=== PATIENT | male | born 1960 | race Caucasian/White ===

== ENCOUNTER 2019-09-22 18:56 | Emergency (ER) | payer BC, OTHER ==
[2019-09-22] MEDS ORDERED: IV RINGERS SOLUTION,LACTATED 1,000 ML IV SCH ×2 (19:06→22:00)
--- NOTE | 2019-09-22 19:06 | PHYS DOC ---
Past History Past Medical History: Anxiety, Arthritis, COPD, Dementia, Other Adult General Chief Complaint Chief Complaint: ALTERED MENTAL STATUS " .. He not right... he all confused... he is forgetting stuff... " .. " He is no right in the head..." ( Mother) [facility] Patient is a 59 year old male who presents with above hx and complaints of mental status change. She always appears to be somewhat confused and a poor historian. Patient does remark that he has had marked increase of memory problems forgetting where his phone is, the keys to the house, or what he is doing next. His mother is at his bedside and advised his mental status is markedly deteriorated in the past 24 hours. but has been going downhill for some time( Months), The patient normally follows Dr. Holdre. Patient denies any changes in meds. Patient denies any illicit drug use. Patient denies any recent head injuries or falls. Patient does have obvious memory problems and at times seems very confused. His mother on the other hand is quite oriented in spite of being 20 +years his senior. Patient does live by himself. Mother brought him in tonight because of his marked confusion. Review of Systems Review of Systems Patient poor historian but denies any pain Constitutional: Denies fever or chills [] Eyes: Denies change in visual acuity, redness, or eye pain [] HENT: Denies nasal congestion or sore throat [] Respiratory: Denies cough or shortness of breath [] Cardiovascular: No additional information not addressed in [facility] [] GI: Denies abdominal pain, nausea, vomiting, bloody stools or diarrhea [] : Denies dysuria or hematuria [] Musculoskeletal: Denies back pain or joint pain [] Integument: Denies rash or skin lesions [] Neurologic: Denies headache, focal weakness or sensory changes [] Endocrine: Denies polyuria or polydipsia [] All other systems were reviewed and found to be within normal limits, except as documented in this note. Family History Family History Noncontributory Current Medications Current Medications See nursing for home meds Allergies Allergies No known drug allergies Physical Exam Physical Exam Constitutional: no acute distress, non-toxic appearance. Obviously having confusion and memory problems HENT: Normocephalic, atraumatic, bilateral external ears normal, oropharynx moist, no oral exudates, nose normal. [] Eyes: PERRLA, EOMI, conjunctiva normal, no discharge. [] Neck: Normal range of motion, no tenderness, supple, no stridor. [] Cardiovascular: Regular Heart rate regular rhythm, no murmur []PMI slightly to the left Lungs & Thorax: Bilateral breath sounds U apexes few scattered wheezes on auscultation [] Abdomen: Bowel sounds normal, soft, no tenderness, no masses, no pulsatile masses. [] Skin: Warm, dry, no erythema, no rash. Poor turgor Back: No tenderness, no CVA tenderness. [] Extremities: No tenderness, no cyanosis, no clubbing, ROM intact, no edema. [] Arthritic changes. Has wide shuffling gait. Neurologic: Alert and oriented X 3, moves extremities on request. Has distal sensory, no focal deficits noted. []DTRs are +2 patella and brachial. Psychologic: Affect anxious, judgement obviously impaired, mood at times angry demeanor.] EKG EKG I interpretation EKG shows a sinus rhythm at 64 bpm. Does have mild leftward axis changes in nonspecific T-wave changes inferiorly leads. No findings acute STEMI with contralateral changes.[] Radiology/Procedures Radiology/[place] [address] IMAGING REPORT Signed PATIENT: GUDELIA ORTIZ ACCOUNT: [id number] : 1960 LOCATION: [address] [place] [address] AGE: 59 SEX: M EXAM STATUS: ADM IN ORD. PHYSICIAN: CHINA JONES MD REASON: mental status change PROCEDURE: PORTABLE CHEST 1V PORTABLE CHEST 1V Clinical History: Technique: AP view of the chest was obtained at 09/22/2019 7:06 PM. Comparison: None. Findings: The cardiomediastinal silhouette is normal. The pulmonary vasculature is normal. There are linear opacities in the lung bases. Impression: Mild basal infiltrates likely discoid atelectasis. Electronically signed by: Shavon Almeida III, MD (09/22/2019 11:55 PM) [facility] DICTATED AND SIGNED BY: SHAVON ALMEIDA III, MD DATE: 09/22/19 [id number] CC: ULISES OLIVARES MD; CHINA JONES MD ~ [][place] [id number] IMAGING REPORT Signed PATIENT: GUDELIA ORTIZ ACCOUNT: [id number] : 1960 LOCATION: ER AGE: 59 SEX: M EXAM STATUS: REG ER ORD. PHYSICIAN: CHINA JONES MD REASON: mental change PROCEDURE: CT HEAD AND CERVICAL SPINE WO CT Head W/O Contrast: History: Comparison: none Axial images were obtained without contrast. There is mild diffuse atrophy. There is no mass effect, extraaxial fluid collections or hydrocephalus. There is no focal loss of mujica-white matter distinction to suggest acute ischemia, i.e. stroke. Impression: No acute findings. End impression CT C-Spine without contrast: Clinical History: Technique: Axial helical images of the cervical spine were obtained without contrast, axial coronal and sagittal reconstruction was performed. Findings: There is no loss of vertebral body stature. There is no prevertebral soft tissue swelling. The vertebral bodies are well aligned. The C1-C2 relationship is normal. The visualized osseous structures appear normal. Evaluation of the central canal is limited without contrast. There is multiple posterior disc bulges resulting in flattening of the thecal sac. There does not appear to be gross flattening of the cervical cord. There is marked narrowing of multiple neuroforamen. Impression: No acute findings. Clinical correlation suggested. PQRS Compliance Statement: One or more of the following individualized dose reduction techniques were utilized for this examination: 1. Automated exposure control 2. Adjustment of the mA and/or kV according to patient size 3. Use of iterative reconstruction technique Electronically signed by: Shavon Almeida III, MD (09/22/2019 8:22 PM) [facility] DICTATED AND SIGNED BY: SHAVON ALMEIDA III, MD DATE: 09/22/192021 CC: ULISES OLIVARES MD; CHINA JONES MD ~ Course & Med Decision Making Course & Med Decision Making Pertinent Labs and Imaging studies reviewed. (See chart for details) Pt. admitted to Dr. Olivares for further eval and tx. Neuro consult with Neurology. Impression: 1. Mental Status Change 2. Dementia 3. Elevated Mag 2.7 4. Elevated Sed. 39 5. Mild Elevation D-dimer 0.58 6. Marked cerebral atrophy vs hydrocephalus or both 7. Hx COPD/Bronchitis []Note after pt. was admitted. He became very agitated. Called his mother and left AMA. Pt. left in care of his mother. Dragon Disclaimer Dragon Disclaimer This electronic medical record was generated, in whole or in part, using a voice recognition dictation system. Departure Departure: Disposition: 01 HOME/RESIDENCE PRIOR TO ADM Condition: STABLE Dragon Disclaimer This chart was dictated in whole or in part using Voice Recognition software in a busy, high-work load, and often noisy Emergency Department environment. It may contain unintended and wholly unrecognized errors or omissions. Dragon Disclaimer This chart was dictated in whole or in part using Voice Recognition software in a busy, high-work load, and often noisy Emergency Department environment. It may contain unintended and wholly unrecognized errors or omissions. CHINA JONES MD Sep 22, 2019 19:06
[2019-09-22 20:10] LABS: BASO % 1 % (0-3); EOS # 0.1 x10^3/uL (0.0-0.7); EOS % 2 % (0-3); HEMATOCRIT 46.6 % (39.0-53.0); HEMOGLOBIN 16.5 g/dL (13.0-17.5); LYMPH # 1.1 x10^3/uL (1.0-4.8); LYMPH % 29 % (24-48); MEAN CORPUSCULAR HEMOGLOBIN 33 pg (25-35); MEAN CORPUSCULAR HGB CONC 35 g/dL (31-37); MEAN CORPUSCULAR VOLUME 94 fL (79-100); MONO # 0.4 x10^3/uL (0.0-1.1); MONO % 9 % (0-9); NEUT # 2.2 x10^3uL (1.8-7.7); NEUT % 59 % (31-73); PLATELET COUNT 146 x10^3/uL (140-400); RED BLOOD COUNT 4.95 x10^6/uL (4.30-5.70); RED CELL DISTRIBUTION WIDTH 13.1 % (11.5-14.5); WHITE BLOOD COUNT 3.8 x10^3/uL (4.0-11.0)
[2019-09-22 20:17] LABS: CALCIUM 8.6 mg/dL (8.5-10.1); CREATININE 0.8 mg/dL (0.7-1.3); GFR 98.3
--- NOTE | 2019-09-22 20:25 | RAD ---
CT Head W/O Contrast: History: Comparison: none Axial images were obtained without contrast. There is mild diffuse atrophy. There is no mass effect, extraaxial fluid collections or hydrocephalus. There is no focal loss of mujica-white matter distinction to suggest acute ischemia, i.e. stroke. Impression: No acute findings. End impression CT C-Spine without contrast: Clinical History: Technique: Axial helical images of the cervical spine were obtained without contrast, axial coronal and sagittal reconstruction was performed. Findings: There is no loss of vertebral body stature. There is no prevertebral soft tissue swelling. The vertebral bodies are well aligned. The C1-C2 relationship is normal. The visualized osseous structures appear normal. Evaluation of the central canal is limited without contrast. There is multiple posterior disc bulges resulting in flattening of the thecal sac. There does not appear to be gross flattening of the cervical cord. There is marked narrowing of multiple neuroforamen. Impression: No acute findings. Clinical correlation suggested. PQRS Compliance Statement: One or more of the following individualized dose reduction techniques were utilized for this examination: 1. Automated exposure control 2. Adjustment of the mA and/or kV according to patient size 3. Use of iterative reconstruction technique Electronically signed by: Uziel Couch III, MD (09/22/2019 8:22 PM) [facility]
[2019-09-22 20:35] LABS: ALBUMIN 3.4 g/dL (3.4-5.0); DIRECT BILIRUBIN 0.1 mg/dL (0.0-0.2); MAGNESIUM 2.7 mg/dL (1.8-2.4); TOTAL BILIRUBIN 0.6 mg/dL (0.2-1.0); TOTAL PROTEIN 7.2 g/dL (6.4-8.2)
[2019-09-22 21:19] LABS: SEDIMENTATION RATE 39 (0-15)
[2019-09-22] MEDS ORDERED: IV RINGERS SOLUTION,LACTATED 1,000 ML IV ONE (21:45)
[2019-09-22] MEDS ORDERED: ACETAMINOPHEN 325 MG TABLET PO PRN (22:00)
[2019-09-22] MEDS ORDERED: ONDANSETRON PF 4 MG/2 ML VIAL. IV PRN (22:00)
[2019-09-22] MEDS ORDERED: ANTI-COAG MONITOR BY PHARMACY. MC PRN (22:15)
[2019-09-22 22:26] LABS: BARBITURATES NEG (NEG); BENZODIAZEPINES POS (NEG); CANNABINOIDS NEG (NEG); COCAINE NEG (NEG); METHADONE NEG (NEG); OPIATES POS (NEG); PHENCYCLIDINE NEG (NEG)
[2019-09-22 22:29] LABS: AMPHETAMINE/METHAMPHETAMINE NEG (NEG)
[2019-09-22] MEDS ORDERED: IPRATRPIUM/ALBUTEROL 0.5/2.5MG 3 ML NEBU. NEB ONE (22:30)
[2019-09-22] MEDS ORDERED: ENOXAPARIN ** NOTE DOSE ** SYRINGE SQ SCH (22:30)
[2019-09-22 22:39] LABS: BILIRUBIN,URINE NEG (NEG); CLARITY,URINE CLEAR; COLOR,URINE YELLOW; GLUCOSE,URINE NEG (NEG)
[2019-09-22 22:40] LABS: BACTERIA,URINE 0 /HPF (0-FEW); NITRITE,URINE NEG (NEG); SQUAMOUS EPITHELIAL CELL,UR OCC /LPF; UROBILINOGEN,URINE 0.2 mg/dL (0.2 mg/dL)
[2019-09-22 22:41] VITALS: BP 103/70
--- NOTE | 2019-09-22 23:59 | RAD ---
PORTABLE CHEST 1V Clinical History: Technique: AP view of the chest was obtained at 09/22/2019 7:06 PM. Comparison: None. Findings: The cardiomediastinal silhouette is normal. The pulmonary vasculature is normal. There are linear opacities in the lung bases. Impression: Mild basal infiltrates likely discoid atelectasis. Electronically signed by: Uziel Couch III, MD (09/22/2019 11:55 PM) [facility]
[2019-09-23] MEDS ORDERED: LORazepam 1 MG TABLET PO ONE
--- NOTE | 2019-09-23 01:00 | NUR ---
pt signed out AMA from the ER, he did not make it to the unit to be admitted. Pt discharged from the system.
--- NOTE | 2019-09-23 05:49 | EKG ---
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
[2019-09-23] MEDS ORDERED: IPRATRPIUM/ALBUTEROL 0.5/2.5MG 3 ML NEBU. NEB SCH (08:00)
== END 2019-09-23 00:18 | disposition left against medical advice (07) ==
LOC: ER 18:56 → UNDOADMIN 21:00 → 1 SOUTH 21:00 → UNDODISIN 09-23 00:18
DX: F03.90 Unspecified dementia, unspecified severity, without behavioral disturbance, psychotic disturbance, mood disturbance, and anxiety (principal); R41.82 Altered mental status, unspecified; R70.0 Elevated erythrocyte sedimentation rate; R79.1 Abnormal coagulation profile; J44.9 Chronic obstructive pulmonary disease, unspecified; F41.9 Anxiety disorder, unspecified; M19.90 Unspecified osteoarthritis, unspecified site
CPT/HCPCS: 36415; 70450; 71045; 72125; 80048; 80076; 80307; 81001; 82550; 83605; 83690; 83735; 83880; 84443; 84484; 85025; 85379; 85610; 85651; 85730; 87040; 93005; 96360; 96361; 99285; J7120

== ENCOUNTER 2020-08-29 09:24 | Emergency (ER) | payer BC, OTHER ==
[~2020-08-29] VITALS: Ht 182.9 cm; Wt 80.0 kg
--- NOTE | 2020-08-29 09:49 | PHYS DOC ---
Past History Past Medical History: Anxiety, Arthritis, COPD, Dementia, Other Past Surgical History: No Surgical History Alcohol Use: Occasionally Drug Use: None General Adult EDM: Chief Complaint: dizziness HPI: HPI: Patient is a male who presents with 1 week history of dizziness. Patient describes lightheaded dizziness is worse with activity. Patient is also had diarrhea which consist of couple loose stools per day over the last week. Patient has had a mild runny nose and mild sore throat. Patient denies any fever, chills, cough or shortness of breath. Patient denies any pain. Patient has had mild nausea but no vomiting. Review of Systems: Review of Systems: Constitutional: Denies fever or chills Eyes: Denies change in visual acuity HENT: Patient's had mild rhinorrhea and a mild sore throat Respiratory: Denies cough or shortness of breath Cardiovascular: Denies chest pain or edema GI: Denies abdominal pain vomiting or blood in his stool has had mild diarrhea and mild nausea : Denies dysuria Musculoskeletal: Denies back pain or joint pain Integument: Denies rash Neurologic: Denies headache, focal weakness or sensory changes patient has had lightheaded dizziness Endocrine: Denies polyuria or polydipsia Lymphatic: Denies swollen glands Psychiatric: Denies depression or anxiety Current Medications: Current Meds: Current Medications Sodium Chloride 1,000 ml @ 1,000 mls/hr 1X ONCE IV Last administered on 08/29/20at 09:45; Start 08/29/20 at 10:00; Stop 08/29/20 at 10:59; Status DC Ondansetron HCl (Zofran) 4 mg 1X ONCE IVP Last administered on 08/29/20at 10:11; Start 08/29/20 at 10:00; Stop 08/29/20 at 10:01; Status DC Allergies: Allergies: Allergies Coded Allergies Type Severity Reaction Last Updated Verified No Known Drug Allergies 09/22/19 No Physical Exam: PE: Constitutional: Well developed, well nourished, no acute distress, non-toxic appearance. [] HENT: Normocephalic, atraumatic, bilateral external ears normal, no trismus, nose normal. [] Eyes: PERRLA, EOMI, conjunctiva normal, no discharge. [] Neck: Normal range of motion, no tenderness, supple, no stridor. [] Cardiovascular:Heart rate regular rhythm, peripheral pulses are intact, cap refills less than 2 seconds Lungs & Thorax: Bilateral breath sounds clear, no respiratory distress Abdomen: , soft, no tenderness, no masses, no pulsatile masses. [] Skin: Warm, dry, no erythema, no rash. [] Back: No tenderness, no CVA tenderness. [] Extremities: No tenderness, no cyanosis, no clubbing, ROM intact, no edema. [] Neurologic: Alert and oriented X 3, normal motor function, normal sensory function, no focal deficits noted. [] Cerebellar exam normal Psychologic: Affect normal, judgement normal, mood normal. [] Current Patient Data: Labs: Laboratory Tests Test 08/29/20 09:45 08/29/20 10:22 White Blood Count 7.1 x10^3/uL Red Blood Count 5.33 x10^6/uL Hemoglobin 17.8 g/dL Hematocrit 52.3 % Mean Corpuscular Volume 98 fL Mean Corpuscular Hemoglobin 34 pg Mean Corpuscular Hemoglobin Concent 34 g/dL Red Cell Distribution Width 13.9 % Platelet Count 303 x10^3/uL Neutrophils (%) (Auto) 68 % Lymphocytes (%) (Auto) 20 % Monocytes (%) (Auto) 11 % Eosinophils (%) (Auto) 1 % Basophils (%) (Auto) 0 % Neutrophils # (Auto) 4.8 x10^3uL Lymphocytes # (Auto) 1.4 x10^3/uL Monocytes # (Auto) 0.7 x10^3/uL Eosinophils # (Auto) 0.1 x10^3/uL Basophils # (Auto) 0.0 x10^3/uL Sodium Level 137 mmol/L Potassium Level 3.5 mmol/L Chloride Level 101 mmol/L Carbon Dioxide Level 24 mmol/L Anion Gap 12 Blood Urea Nitrogen 15 mg/dL Creatinine 0.9 mg/dL Estimated GFR (Cockcroft-Gault) 85.5 BUN/Creatinine Ratio 17 Glucose Level 100 mg/dL Calcium Level 10.3 mg/dL Total Bilirubin 1.1 mg/dL Aspartate Amino Transf (AST/SGOT) 20 U/L Alanine Aminotransferase (ALT/SGPT) 25 U/L Alkaline Phosphatase 143 U/L Troponin I Quantitative < 0.017 ng/mL Total Protein 8.6 g/dL Albumin 4.0 g/dL Albumin/Globulin Ratio 0.9 Lipase 187 U/L Urine Collection Type Unknown Urine Color Kaylynn Urine Clarity Hazy Urine pH 5.5 Urine Specific Brewer 1.025 Urine Protein Neg Urine Glucose (UA) Neg mg/dL Urine Ketones (Stick) 80 mg/dL Urine Blood Neg Urine Nitrite Neg Urine Bilirubin Neg Urine Urobilinogen Dipstick 0.2 mg/dL Urine Leukocyte Esterase Neg Urine RBC Occ /HPF Urine WBC 1-4 /HPF Urine Squamous Epithelial Cells Occ /LPF Urine Bacteria Few /HPF Urine Hyaline Casts Occ /HPF Urine Granular Casts Occ /HPF Urine Mucus Mod /LPF Current Medications Medications (Trade) Dose Ordered Sig/Melony Route PRN Reason Start Time Stop Time Status Last Admin Dose Admin Sodium Chloride 1,000 ml @ 1,000 mls/hr 1X ONCE IV 08/29/20 10:00 08/29/20 10:59 DC 08/29/20 09:45 Ondansetron HCl (Zofran) 4 mg 1X ONCE IVP 08/29/20 10:00 08/29/20 10:01 DC 08/29/20 10:11 Vital Signs: Vital Signs Date Time Temp Pulse Resp B/P (MAP) Pulse Ox O2 Delivery O2 Flow Rate FiO2 08/29/20 11:32 65 18 125/78 (94) 97 Room Air 08/29/20 09:52 97.6 EKG: EKG: EKG interpreted by me normal sinus rhythm with a rate of 67 left anterior hemiblock, left axis deviation, nonspecific ST changes [] Radiology/Procedures: Radiology/Procedures: [][address] [address] IMAGING REPORT Signed PATIENT: GUDELIA ORTIZ ACCOUNT: [id number] : 1960 LOCATION: ER AGE: 60 SEX: M EXAM STATUS: REG ER ORD. PHYSICIAN: CHRISTINE GE MD REASON: dizzy PROCEDURE: PORTABLE CHEST 1V INDICATION: Reason: dizzy / Spl. Instructions: / History: COMPARISON: September 22, 2019 FINDINGS: Single view of chest obtained. No focal airspace consolidation. Cardiomediastinal contour unremarkable. No acute osseous abnormality. IMPRESSION: * No focal airspace consolidation or edema. Electronically signed by: Leoncio Wright MD (08/29/2020 10:20 AM) [id number] DICTATED AND SIGNED BY: LEONCIO WRIGHT MD DATE: 08/29/20 1020 CC: CHRISTINE GE MD; ULISES OLIVARES MD ~MTH0 [address] [place] [address] IMAGING REPORT Signed PATIENT: GUDELIA ORTIZ ACCOUNT: [id number] : 1960 LOCATION: ER AGE: 60 SEX: M EXAM STATUS: REG ER ORD. PHYSICIAN: CHRISTINE GE MD REASON: dizzy PROCEDURE: CT HEAD WO CONTRAST CT Head W/O Contrast: History: Reason: dizzy / Spl. Instructions: / History: Comparison: September 22, 2019 Axial images were obtained without contrast. The mujica and white matter appears normal and symmetrical for the patients age. There is no mass effect, extraaxial fluid collections or hydrocephalus. There is no gross bleed. There is no focal loss of mujica-white matter distinction to suggest acute ischemia, i.e. stroke. Impression: No acute findings. PQRS Compliance Statement: One or more of the following individualized dose reduction techniques were utilized for this examination: 1. Automated exposure control 2. Adjustment of the mA and/or kV according to patient size 3. Use of iterative reconstruction technique Electronically signed by: Shavon Almeida III, MD (08/29/2020 10:20 AM) [id number] DICTATED AND SIGNED BY: SHAVON ALMEIDA III, MD DATE: 08/29/20 1020 CC: CHRISTINE GE MD; ULISES OLIVARES MD ~MTH0 0 Heart Score: Risk Factors: Risk Factors: DM, Current or recent (<one month) smoker, HTN, HLP, family history of CAD, obesity. Risk Scores: Score 0 - 3: 2.5% MACE over next 6 weeks - Discharge Home Score 4 - 6: 20.3% MACE over next 6 weeks - Admit for Clinical Observation Score 7 - 10: 72.7% MACE over next 6 weeks - Early Invasive Strategies Course & Med Decision Making: Course & Med Decision Making Pertinent Labs and Imaging studies reviewed. (See chart for details) [] 60-year-old male presents with a chief complaint of dizziness. Patient's work-up is reassuring other than a minor urinary tract infection. Patient will be treated for UTI. Patient had dizziness and need to be rule out coronary and neurological pathologies therefore EKG, head CT were done. Patient also has some possible Covid symptoms and has been swab for this will need to isolate till results come back. Patient is neurologically at his baseline. Doubt acute stroke. CT without any acute pathology. Patient clinically improved and stable on reassessment. Dragon Disclaimer: Howard Disclaimer: This electronic medical record was generated, in whole or in part, using a voice recognition dictation system. Departure Departure: Impression: Primary Impression: Dizziness Additional Impressions: UTI (urinary tract infection) Suspected COVID-19 virus infection Disposition: DC HOME SELF CARE/HOMELESS Condition: STABLE Referrals: ULISES OLIVARES MD (PCP) 2-3 days Patient Instructions: Dizziness, Urinary Tract Infection Additional Instructions: You have been tested for or diagnosed with COVID-19. It is an infection caused by a new type of coronavirus. COVID-19 will cause cold-like or mild flu symptoms in most. It can cause more severe symptoms like problems breathing in some. There is no treatment for COVID-19. The body will clear the infection over time. Self-care will help to ease discomfort. Steps to Take: Self-Care Rest as needed. Healthy habits may help you feel better. Steps include: Choose healthy foods including fruits and vegetables. Drink water throughout the day. Get plenty of sleep each night. If you smoke, try to quit. It may ease breathing. Avoid alcohol. Keep Others Healthy The virus can spread to others. Droplets are released every time you sneeze or cough. The droplets can get into the mouth, nose, or eyes of people near you and lead to infection. To lower the chances of spreading COVID-19 to others: Stay at home until your doctor has said it is safe to leave. If you tested positive this will mean staying isolated until both of the following are true: At least 7 days have passed since the start of illness. You are free of fever for at least 72 hours without the use of medicine. During this time: - Avoid public areas, events, or transportation. Do not return to work or school until your doctor has said it is safe to do so. - Call ahead if you need to go to a medical center. Let them know you may have COVID-19. It will help them guide you where to go. They may also ask you to wear a facemask when you come to the office. - If you call for emergency medical services, let them know you may have COVID- 19. While at home: - Try to avoid close contact with others. Stay about 6 feet away. - If possible, spend most of your time in a separate room from others. - Use a face mask if you will be in close contact with others such as sharing a room or vehicle. - Have someone wipe down common surfaces in the home. Use household sole stapler welt every day on areas like doorknobs, counters, or sinks. - Cough or sneeze into a tissue. Throw the tissue away right after use. If a tissue is not available, cough or sneeze into your elbow. - Wash your hands often. Wash them after sneezing or coughing. Use soap and water and wash for at least 20 seconds. Alcohol based hand pin cleaner can be used if soap and water is not available. - Do not prepare food for others. Avoid sharing personal items like forks, spoons, or toothbrushes. - Avoid close contact with pets while you are sick. There is no evidence of the virus passing to pets. This is a safety step until more is known about this virus. Isolation can be frustrating. Social interaction can help. Keep in touch with friends and family through phone and tech options. You can still interact with others in your home, just keep a safe distance of about 6 feet. Follow-up: Your doctors office will check in with you to see if there are any changes in your health. You may be asked to keep track of symptoms to share with them. They will also let you know when you are clear to be in public again. Problems to Look Out For: Contact your doctor if your recovery is not going as you expect. Get emergency care if you have problems such as: - Trouble breathing - Nonstop chest pain or pressure - Changes in awareness, confusion, or problems waking - Lips or face have bluish color - Worsening of symptoms If you think you have an emergency, call for emergency medical services right away. As taken from [facility] EMERGENCY DEPARTMENT GENERAL DISCHARGE INSTRUCTIONS THANK YOU for coming to [facility] Emergency Department (ED) today and trusting us with your care. We trust that you had a positive experience in our Emergency Department. If you wish to speak to the department Management you can contact the emergency department at YOUR FOLLOW UP INSTRUCTIONS ARE FOLLOWS: Do you have a private doctor? If you do not have a private doctor, please ask for a resource list of physicians or clinics that may be able to assist you with follow up c are. The Emergency Physician has interpreted your x-rays. The X-ray specialist will also review them. If there is a change in the findings you will be notified in 48 hours when at all possible. A lab test or lab culture may have been done, your results will be reviewed and you will be notified if you need a change in treatment. ADDITIONAL INSTRUCTIONS AND INFORMATION Your care today has been supervised by a physician who is specially trained in emergency care. Many problems require more than one evaluation for a complete diagnosis and treatment. We recommend that you schedule your follow up appointment as recommended to ensure complete treatment of your illness or injury. If you are unable to obtain follow up care and continue to have a problem, or if your condition worsens we recommend that you return to the ED. We are not able to safely determine your condition over the phone nor are we able to give sound medical advice over the phone. For these safety reasons, if you call for medical advice we will ask you to come to the ED for further evaluation If you have any questions regarding these discharge instructions please call the ED at SAFETY INFORMATION In the interest of safety, wellness, and injury prevention; we encourage you to wear your seatbelt, if you smoke; quit smoking, and we encourage your family to use protective helmet for bicycling and other sporting events that present an increased risk for head injury. IF YOUR SYMPTOMS WORSEN OR NEW SYMPTOMS DEVELOP, OR YOU HAVE CONCERNS ABOUT YOUR CONDITION; OR IF YOUR CONDITION WORSENS WHILE YOU ARE WAITING FOR YOUR FOLLOW UP APPOINTMENT; EITHER CONTACT YOUR PRIMARY CARE DOCTOR, THE PHYSICIAN WHOSE NAME AND NUMBER YOU WERE GIVEN, OR RETURN TO THE ED IMMEDIATELY. Scripts Nitrofurantoin Monohyd/M-Cryst (MACROBID 100 MG CAPSULE) 100 Mg Capsule 1 CAP PO BID for uti for 7 Days, #14 CAP 0 Refills Prov: CHRISTINE GE MD 08/29/20 Meclizine Hcl (MECLIZINE HCL) 25 Mg Tablet 1 TAB PO PRN TID PRN for DIZZINESS, #30 TAB Prov: CHRISTINE GE MD 08/29/20 CHRISTINE GE MD Aug 29, 2020 09:48
[2020-08-29] MEDS ORDERED: IV NORMAL SALINE 1,000ML 1,000 ML IV ONE (10:00)
[2020-08-29] MEDS ORDERED: ONDANSETRON PF 4 MG/2 ML VIAL. IVP ONE (10:00)
--- NOTE | 2020-08-29 10:02 | EKG ---
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
[2020-08-29 10:07] LABS: BASO % 0 % (0-3); EOS # 0.1 x10^3/uL (0.0-0.7); EOS % 1 % (0-3); HEMATOCRIT 52.3 % (39.0-53.0); HEMOGLOBIN 17.8 g/dL (13.0-17.5); LYMPH # 1.4 x10^3/uL (1.0-4.8); LYMPH % 20 % (24-48); MEAN CORPUSCULAR HEMOGLOBIN 34 pg (25-35); MEAN CORPUSCULAR HGB CONC 34 g/dL (31-37); MEAN CORPUSCULAR VOLUME 98 fL (79-100); MONO # 0.7 x10^3/uL (0.0-1.1); MONO % 11 % (0-9); NEUT # 4.8 x10^3uL (1.8-7.7); NEUT % 68 % (31-73); PLATELET COUNT 303 x10^3/uL (140-400); RED BLOOD COUNT 5.33 x10^6/uL (4.30-5.70); RED CELL DISTRIBUTION WIDTH 13.9 % (11.5-14.5); WHITE BLOOD COUNT 7.1 x10^3/uL (4.0-11.0)
[2020-08-29 10:18] LABS: CALCIUM 10.3 mg/dL (8.5-10.1); CREATININE 0.9 mg/dL (0.7-1.3); GFR 85.5; POTASSIUM 3.5 mmol/L (3.5-5.1)
--- NOTE | 2020-08-29 10:22 | RAD ---
CT Head W/O Contrast: History: Reason: dizzy / Spl. Instructions: / History: Comparison: September 22, 2019 Axial images were obtained without contrast. The mujica and white matter appears normal and symmetrical for the patients age. There is no mass effect, extraaxial fluid collections or hydrocephalus. There is no gross bleed. There is no focal loss of mujica-white matter distinction to suggest acute ischemia, i.e. stroke. Impression: No acute findings. PQRS Compliance Statement: One or more of the following individualized dose reduction techniques were utilized for this examination: 1. Automated exposure control 2. Adjustment of the mA and/or kV according to patient size 3. Use of iterative reconstruction technique Electronically signed by: Uziel Couch III, MD (08/29/2020 10:20 AM) [id number]
--- NOTE | 2020-08-29 10:23 | RAD ---
INDICATION: Reason: dizzy / Spl. Instructions: / History: COMPARISON: September 22, 2019 FINDINGS: Single view of chest obtained. No focal airspace consolidation. Cardiomediastinal contour unremarkable. No acute osseous abnormality. IMPRESSION: * No focal airspace consolidation or edema. Electronically signed by: Owen Kimble MD (08/29/2020 10:20 AM) [id number]
[2020-08-29 10:24] LABS: ALBUMIN/GLOBULIN RATIO 0.9 (1.0-1.7); TOTAL BILIRUBIN 1.1 mg/dL (0.2-1.0); TOTAL PROTEIN 8.6 g/dL (6.4-8.2)
[2020-08-29 11:30] LABS: BACTERIA,URINE FEW /HPF (0-FEW); BILIRUBIN,URINE NEG (NEG); CLARITY,URINE HAZY; COLOR,URINE AMBER; GLUCOSE,URINE NEG (NEG); NITRITE,URINE NEG (NEG); RBC,URINE OCC /HPF (0-2); SQUAMOUS EPITHELIAL CELL,UR OCC /LPF; UROBILINOGEN,URINE 0.2 mg/dL (0.2 mg/dL)
[2020-08-29 11:31] LABS: GRANULAR CASTS,URINE OCC /HPF; HYALINE CASTS, URINE OCC /HPF
[2020-08-29 11:32] VITALS: BP 125/78
[2020-08-29] MEDS ORDERED: NITR100C62 PO (11:44)
[2020-08-29] MEDS ORDERED: MECL-75 PO (11:44)
== END 2020-08-29 12:00 | disposition home or self-care (01) ==
LOC: ER 09:24
DX: N39.0 Urinary tract infection, site not specified (principal); R42 Dizziness and giddiness; J44.9 Chronic obstructive pulmonary disease, unspecified; M19.90 Unspecified osteoarthritis, unspecified site; F03.90 Unspecified dementia, unspecified severity, without behavioral disturbance, psychotic disturbance, mood disturbance, and anxiety; Z20.828 Contact with and (suspected) exposure to other viral communicable diseases
CPT/HCPCS: 36415; 70450; 71045; 80053; 81001; 83690; 84484; 85025; 93005; 96361; 96374; 99285; C9803; J2405; J7030; U0003

== ENCOUNTER 2021-03-06 00:28 | Emergency (ER) | payer OTHER ==
[~2021-03-06] VITALS: Ht 182.9 cm; Wt 81.5 kg
[~2021-03-06 00:28] MED LIST: MECL-75 PO; NITR100C62 PO
--- NOTE | 2021-03-06 00:51 | PHYS DOC ---
Past History Past Medical History: Anxiety, Arthritis, COPD, Dementia, Other Past Surgical History: No Surgical History Alcohol Use: Heavy Drug Use: None Adult General HPI HPI Patient is a 61-year-old male with a past medical history significant for anxiety, who took Xanax for years but quit approximately a week ago and also continues approximately 4-5 drinks daily, stating that it usually beer or wine. States that his last drink was in late afternoon. Per patient and patient's mother over the past several months patient has had episodes where he seemed a little confused and slow to answer questions and losing things around the house such as his keys and things. Both mom and patient states that today he was out walking around, got lost and thought he was at his house but was actually at someone else's house and had to call his mom for a ride home because he could not remember how he got there. States that he has had episodes like this about once a month over the last several months. Patient denies any other drug use. States that dementia does run in his family as his father had Alzheimer's and his 60s as well. States that he has talked to his primary care physician about this and has been directed to change his diet and quit drinking as well as quit taking Xanax. Denies any recent traumas, travels, illnesses, fevers, chest pain, shortness of breath, abdominal pain, nausea, vomiting. Denies any numbness/weakness/tingling. States he is eating and drinking normally for him. States he is making urine and stool normally for him. Review of Systems Review of Systems Review of systems otherwise unremarkable except noted in HPI Allergies Allergies Allergies Coded Allergies Type Severity Reaction Last Updated Verified No Known Drug Allergies 09/22/19 No Physical Exam Physical Exam Constitutional: Well developed, well nourished, no acute distress, non-toxic appearance. [] HENT: Normocephalic, atraumatic, bilateral external ears normal, oropharynx moist, no oral exudates, nose normal. [] Eyes: PERRLA, EOMI, conjunctiva normal, no discharge. [] Neck: Normal range of motion, no tenderness, supple, no stridor. [] Cardiovascular:Heart rate regular rhythm, no murmur [] Lungs & Thorax: Bilateral breath sounds clear to auscultation [] Abdomen: Bowel sounds normal, soft, no tenderness, no masses, no pulsatile masses. [] Skin: Warm, dry, no erythema, no rash. [] Back: No tenderness, no CVA tenderness. [] Extremities: No tenderness, no cyanosis, no clubbing, ROM intact, no edema. [] Neurologic: Alert and oriented X 3, normal motor function, normal sensory function, no focal deficits noted, able to sit, stand and walk without issue. [] Psychologic: Affect normal, judgement normal, mood normal. Patient able to answer person, place, time, and president but had to think about it for a few seconds. [] EKG EKG [] Radiology/Procedures Radiology/Procedures [] CT head without contrast: Reason for examination: Altered mental status with confusion and dizziness. Comparison is made to previous study dated 08/29/2020. Helical images were obtained through the brain with no contrast administered. Exposure: One or more of the following individualized dose reduction techniques were utilized for this examination: 1. Automated exposure control 2. Adjustment of the mA and/or kV according to patient size 3. Use of iterative reconstruction technique. Ventricular systems are symmetric and not dilated. No midline shift is seen. There is no evidence of intracranial hemorrhage, infarct, mass or edema. No abnormalities are seen at the orbits. The paranasal sinuses and mastoid air cells are clear. No acute abnormality seen in the skull. IMPRESSION: No acute intracranial abnormality evident. Electronically signed by: Raine Renteria MD (03/06/2021 1:26 AM) [facility] Heart Score C/O Chest Pain: No Risk Factors: Risk Factors: DM, Current or recent (<one month) smoker, HTN, HLP, family history of CAD, obesity. Risk Scores: Risk Factors: DM, Current or recent (<one month) smoker, HTN, HLP, family history of CAD, obesity. Course & Med Decision Making Course & Med Decision Making Patient is a 61-year-old male who presents with mom for chief complaint of episodes of mild confusion over the last several months. Patient recently stopped taking Xanax, is not taking any other medications except for an occasional hydrocodone which he says he has leftover at home but did not take any today. States she is talked to his primary care physician several times and was advised to change his diet, quit drinking and stopped taking Xanax. Laboratory analysis not concerning. CT of the head normal. Patient in the ED alert and oriented x3, able to sit, stand and walk without issue. Given patient's history of drinking was given a dose of vitamin B12, folate and thiamine given Warnicke cause a cough on differential diagnosis. Discussed all findings with family and offered admission to the hospital for continued evaluation and treatment, with consultation by neurology and continued vitamin supplementation and work-up. Patient stated that he is not going to stay in the hospital, wants to be discharged home and will follow up with his primary care doctor in the morning Dr. Holder, because he has an appointment made already. Discussed the risks of this including further confusion, falls, and being hurt if he is walking around outside confused. Patient stated that he understood, felt fine and prefers to go on home. Advised to keep his appointment tomorrow with his primary care physician and return to the emergency department with new or concerning symptoms as discussed. Family grateful, verbalized understanding and agreed with plan of discharge. [] Dragon Disclaimer Dragon Disclaimer This electronic medical record was generated, in whole or in part, using a voice recognition dictation system. Departure Departure: Impression: Primary Impression: Confusion after a seizure Disposition: 01 HOME / SELF CARE / HOMELESS Condition: GOOD Referrals: ULISES OLIVARES MD (PCP) Patient Instructions: Alcohol Problems, Alcohol Withdrawal, Wernicke-Korsakoff Syndrome Additional Instructions: Thank you for coming into the emergency department [facility] to allow us to take care of you. Please read all of the attached information very carefully as discussed. Please keep your appointment with your primary care physician in the morning. As discussed please eat at least three nutritious meals a day and take your One-A-Day vitamin. As discussed please consider cutting back and/or quitting alcohol consumption. You are offered admission to the hospital [facility] for continued evaluation and treatment but you stated you would prefer to go home and see your primary care physician in the morning. Please come back to the emergency department immediately with new or concerning symptoms as discussed. JESS KATZ MD Mar 06, 2021 00:51
--- NOTE | 2021-03-06 01:29 | RAD ---
CT head without contrast: Reason for examination: Altered mental status with confusion and dizziness. Comparison is made to previous study dated 08/29/2020. Helical images were obtained through the brain with no contrast administered. Exposure: One or more of the following individualized dose reduction techniques were utilized for thi s examination: 1. Automated exposure control 2. Adjustment of the mA and/or kV according to patient size 3. Use of iterative reconstruction technique. Ventricular systems are symmetric and not dilated. No midline shift is seen. There is no evidence of intracranial hemorrhage, infarct, mass or edema. No abnormalities are seen at the orbits. The paranas al sinuses and mastoid air cells are clear. No acute abnormality seen in the skull. IMPRESSION: No acute intracranial abnormality evident. Electronically signed by: Raine Renteria MD (03/06/2021 1:26 AM) [facility]
[2021-03-06 01:30] LABS: BASO % 1 % (0-3); EOS # 0.1 x10^3/uL (0.0-0.7); EOS % 1 % (0-3); HEMATOCRIT 49.5 % (39.0-53.0); HEMOGLOBIN 16.9 g/dL (13.0-17.5); LYMPH # 1.3 x10^3/uL (1.0-4.8); LYMPH % 19 % (24-48); MEAN CORPUSCULAR HEMOGLOBIN 33 pg (25-35); MEAN CORPUSCULAR HGB CONC 34 g/dL (31-37); MEAN CORPUSCULAR VOLUME 98 fL (79-100); MONO % 14 % (0-9); NEUT # 4.6 x10^3uL (1.8-7.7); NEUT % 66 % (31-73); PLATELET COUNT 262 x10^3/uL (140-400); RED BLOOD COUNT 5.07 x10^6/uL (4.30-5.70); WHITE BLOOD COUNT 7.1 x10^3/uL (4.0-11.0)
[2021-03-06 01:39] LABS: BARBITURATES NEG (NEG); BENZODIAZEPINES NEG (NEG); CANNABINOIDS NEG (NEG); COCAINE NEG (NEG); METHADONE NEG (NEG); OPIATES POS (NEG); PHENCYCLIDINE NEG (NEG)
[2021-03-06 01:43] LABS: AMPHETAMINE/METHAMPHETAMINE NEG (NEG)
[2021-03-06 01:44] LABS: CLARITY,URINE CLEAR; COLOR,URINE YELLOW; GLUCOSE,URINE NEG (NEG)
[2021-03-06 01:45] LABS: BACTERIA,URINE 0 /HPF (0-FEW); BILIRUBIN,URINE SMALL (NEG); NITRITE,URINE NEG (NEG); RBC,URINE 0 /HPF (0-2); SQUAMOUS EPITHELIAL CELL,UR OCC /LPF; UROBILINOGEN,URINE 0.2 mg/dL (0.2 mg/dL); WBC,URINE OCC /HPF (0-4)
[2021-03-06 02:07] LABS: CALCIUM 9.3 mg/dL (8.5-10.1); GFR 75.5; POTASSIUM 3.3 mmol/L (3.5-5.1)
[2021-03-06 02:12] LABS: ALBUMIN 3.8 g/dL (3.4-5.0); ALBUMIN/GLOBULIN RATIO 0.9 (1.0-1.7); TOTAL BILIRUBIN 1.1 mg/dL (0.2-1.0)
[2021-03-06] MEDS ORDERED: CYANOCOBALAMIN (VITAMIN B-12) 1,000 MCG/ML VIAL. IM ONE (02:15)
[2021-03-06] MEDS ORDERED: THIAMINE INJ 100 MG in IV NORMAL SALINE 50ML 50 ML IV ONE (02:15)
[2021-03-06] MEDS ORDERED: FOLIC ACID 1 MG TABLET PO ONE (02:15)
[2021-03-06] MEDS ORDERED: IV NORMAL SALINE 50ML 50 ML ONE (02:59)
[2021-03-06] MEDS ORDERED: THIAMINE 200 MG/2 ML VIAL. IV ONE (03:00)
[2021-03-06 03:18] VITALS: BP 110/68
--- NOTE | 2021-03-06 05:30 | EKG ---
[address] [address] Test Date: 2021-03-05 Test Time: 21:04:02 Pat Name: GUDELIA ORTIZ Department: Room: Gender: M [employer]: : [id number] Requested By: JESS KATZ Order Number: [id number] Reading MD: Measurements Intervals [place] Rate: 75 P: -90 UT: 176 QRS: -4 QRSD: 78 T: 29 QT: 406 QTc: 456 Interpretive Statements SINUS RHYTHM LEFTWARD AXIS NO SPECIFIC ECG ABNORMALITIES RI6.02 Compared to ECG 03/05/2021 21:00:58 Prolonged QT interval no longer present
== END 2021-03-06 03:22 | disposition home or self-care (01) ==
LOC: ER 00:28
DX: R56.9 Unspecified convulsions (principal); R41.0 Disorientation, unspecified; F41.9 Anxiety disorder, unspecified; M19.90 Unspecified osteoarthritis, unspecified site; J44.9 Chronic obstructive pulmonary disease, unspecified; G30.9 Alzheimer's disease, unspecified; F02.80 Dementia in other diseases classified elsewhere, unspecified severity, without behavioral disturbance, psychotic disturbance, mood disturbance, and anxiety; F10.20 Alcohol dependence, uncomplicated; Y90.0 Blood alcohol level of less than 20 mg/100 ml
CPT/HCPCS: 36415; 70450; 80053; 80307; 81001; 82140; 83690; 84443; 84484; 85025; 93005; 96372; 96374; 99285; G0480; J3420

== ENCOUNTER → 2021-08-18 | Outpatient (CLI) | payer OTHER ==
[2021-08-18 11:57] LABS: BASO % 1 % (0-3); EOS % 1 % (0-3); HEMATOCRIT 48.1 % (39.0-53.0); HEMOGLOBIN 16.2 g/dL (13.0-17.5); LYMPH # 1.2 x10^3/uL (1.0-4.8); LYMPH % 15 % (24-48); MEAN CORPUSCULAR HEMOGLOBIN 33 pg (25-35); MEAN CORPUSCULAR HGB CONC 34 g/dL (31-37); MEAN CORPUSCULAR VOLUME 98 fL (79-100); MONO # 0.8 x10^3/uL (0.0-1.1); MONO % 11 % (0-9); NEUT # 5.7 x10^3uL (1.8-7.7); NEUT % 73 % (31-73); PLATELET COUNT 293 x10^3/uL (140-400); RED BLOOD COUNT 4.91 x10^6/uL (4.30-5.70); RED CELL DISTRIBUTION WIDTH 13.4 % (11.5-14.5); WHITE BLOOD COUNT 7.8 x10^3/uL (4.0-11.0)
[2021-08-18 12:10] LABS: BILIRUBIN,URINE SMALL (NEG); CLARITY,URINE CLEAR; COLOR,URINE AMBER; GLUCOSE,URINE NEG (NEG); NITRITE,URINE NEG (NEG); UROBILINOGEN,URINE 0.2 mg/dL (0.2 mg/dL)
[2021-08-18 12:11] LABS: BACTERIA,URINE 0 /HPF (0-FEW); RBC,URINE RARE /HPF (0-2); SQUAMOUS EPITHELIAL CELL,UR OCC /LPF; WBC,URINE OCC /HPF (0-4)
[2021-08-18 12:20] LABS: ALBUMIN 3.8 g/dL (3.4-5.0); ALBUMIN/GLOBULIN RATIO 0.9 (1.0-1.7); C REACTIVE PROTEIN 0.9 mg/L (0-3.3); CALCIUM 8.7 mg/dL (8.5-10.1); CREATININE 0.9 mg/dL (0.7-1.3); GFR 85.2; POTASSIUM 3.4 mmol/L (3.5-5.1); TOTAL BILIRUBIN 0.9 mg/dL (0.2-1.0)
[2021-08-18 12:21] LABS: BARBITURATES NEG (NEG); BENZODIAZEPINES NEG (NEG); CANNABINOIDS NEG (NEG); COCAINE NEG (NEG); METHADONE NEG (NEG); OPIATES NEG (NEG); PHENCYCLIDINE NEG (NEG)
[2021-08-18 12:24] LABS: AMPHETAMINE/METHAMPHETAMINE NEG (NEG)
[2021-08-18 19:42] LABS: FREE T4 1.48 ng/dL (0.76-1.46); THYROID STIM HORMONE (TSH) 0.672 uIU/mL (0.358-3.740)
[2021-08-23 07:09] LABS: DOPAMINE <30 pg/mL (0-48); EPINEPHRINE 29 pg/mL (0-62); NOREPINEPHRINE 767 pg/mL (0-874)
== END ==
LOC: LAB 11:05
PROVIDERS: ATTEND Family Medicine
DX: R41.82 Altered mental status, unspecified (principal)
CPT/HCPCS: 36415; 80053; 80307; 81001; 82306; 82384; 82607; 82652; 84439; 84443; 85025; 86140